=== PATIENT | female | born 1935 | race Caucasian/White ===

== ENCOUNTER 2016-11-13 12:03 | Outpatient (CLI) | payer OTHER, MEDICARE ==
[~2016-11-13] VITALS: Ht 147.3 cm; Wt 40.4 kg
[~2016-11-13 12:03] MED LIST: ACET-2650 PO; AMOX250C; AMOX250C PO; FLUT16SP22 NS; ROPI2TAB4; ROPI2TAB4 PO; RT-ALBUINH INH; TRAM50TA2 PO
[2016-11-13] MEDS ORDERED: BUPIVACAINE 0.25% 30 ML (SENSORCAINE) VIAL ONE (12:09)
[2016-11-13] MEDS ORDERED: TRIAMCINOLONE ACET (KENALOG-40) 40 MG/ML 1 ML VIAL ONE (12:09)
[2016-11-13 12:19] VITALS: BP 116/66
--- NOTE | 2016-11-13 14:56 | Pain Medicine-Procedure ---
Procedure Pre-Op/Post-Op Diagnosis Diagnosis: disc disorder with radiculopathy, lumbar Indications for Operation Low back pain Attending Surgeon Reji Procedure Date of Service: Nov 13, 2016 Procedure: Lumbar Epidural Steroid Injection at the L4-L5 level under Fluoroscopic Guidance Procedure: Patient was identified in the holding area. After risks, benefits, and alternatives were discussed with the patient, informed consent was obtained. Patient was brought to the fluoroscopy suite and placed prone on the procedure room table. A time out was performed. Vital signs were monitored throughout the procedure. The patients low back was prepped and draped in the usual sterile fashion. The patients skin was anesthetized using 2% Lidocaine. A Tuohy needle was inserted and advanced to the L4-L5 epidural space under fluoroscopic guidance using the loss of resistance technique and intermittent projection of fluoroscopy. There was no paresthesia with needle placement. The needle position was confirmed in both the AP and lateral view. After negative aspiration 2ml of contrast was injected under live fluoroscopy which showed good spread of the contrast in the epidural space at the appropriate level, there was no intravascular or subarachnoid spread. Again, after negative aspiration for heme or CSF, 2 ml of 0.25% Bupivicaine, 2ml of preservative free normal saline, and 80mg of Kenalog was injected. The needle was removed and a sterile bandage was placed and the patient was transferred to the recovery area in stable condition. After a brief period of observation, patient was discharged to home with no new neurological deficits and no apparent complications. Complications None ELLA ANNA MD Nov 13, 2016 2:56 pm
== END 2016-11-13 13:08 | disposition home or self-care (01) ==
LOC: CARD 12:03
PROVIDERS: ATTEND Pain Medicine Pain Medicine
DX: M51.16 Intervertebral disc disorders with radiculopathy, lumbar region (principal); Z79.899 Other long term (current) drug therapy
CPT/HCPCS: 62323

== ENCOUNTER → 2020-06-07 | Outpatient (CLI) | payer MEDICARE, BC ==
[~2020-06-07] MED LIST changes: +LORA10TA7 PO; -ROPI2TAB4; -ROPI2TAB4 PO; +ROPI2TAB6; +ROPI2TAB6 PO; -TRAM50TA2 PO; +TRM50T PO
== END ==
LOC: RAD 10:30
PROVIDERS: ATTEND Nurse Practitioner Family
DX: R13.12 Dysphagia, oropharyngeal phase (principal)

== ENCOUNTER → 2020-10-12 | Outpatient (CLI) | payer OTHER, MEDICARE, BC | LOC: GIR 16:20 | PROVIDERS: ATTEND Internal Medicine | DX: Z01.89 Encounter for other specified special examinations (principal) | CPT/HCPCS: 84132 ==

== ENCOUNTER 2020-12-28 17:26 | Emergency (ER) | payer MEDICARE, BC ==
[~2020-12-28] VITALS: Ht 147 cm; Wt 38.1 kg
--- NOTE | 2020-12-28 17:42 | ED General ---
General Stated Complaint: MULTIPLE FALLS Source of Information: Patient Exam Limitations: No Limitations (MATY OWENS APRN) History of Present Illness Date Seen by Provider: Dec 28, 2020 Time Seen by Provider: 17:37 Initial Comments To ER with reports of multiple falls. She is brought to ER by private vehicle accompanied by her daughter. Patient is on hosp[facility] for dementia and Parkinson's disease. Currently resides at [facility] but [facility] does not feel they are adequately meeting her needs. She is getting established with [facility] to be transferred to their services. She fell once yesterday and once today, has an abrasion of the forehead. Starting today she has had a decline in mental status much more lethargic than usual. Timing/Duration: 1-2 Days Severity: Moderate Associated Systoms: Denies Symptoms (MATY OWENS APRN) Allergies and Home Medications Allergies Coded Allergies: No Known Drug Allergies (Unverified , 08/31/15) Home Medications Acetaminophen 650 Mg Tablet.er, 650 MG PO Q4H PRN for PAIN, (Reported) Albuterol Sulfate 8.5 Gm Hfa.aer.ad, 2 PUFF INH Q6H PRN for SHORTNESS OF BREATH, (Reported) Fluticasone Propionate 16 Gm Wittman.susp, 2 SPRAYS NS DAILY PRN for Allergies, (Reported) Loratadine 10 Mg Tablet, 10 MG PO DAILY, (Reported) Patient Home Medication List Home Medication List Reviewed: Yes (MATY OWENS APRN) Review of Systems Review of Systems Constitutional: see HPI, other (Unable to obtain) (MATY OWENS APRN) Past Lcsidun-Tqqors-Wyxtdo Hx Patient Social History Type Used: Cigarettes Former Smoker, Quit: Feb 23, 2005 2nd Hand Smoke Exposure: No Recent Hopitalizations: No (MATY OWENS APRN) Immunizations Up To Date Date of Pneumonia Vaccine: Apr 25, 2015 Date of Influenza Vaccine: Apr 25, 2016 (MATY OWENS APRN) Seasonal Allergies Seasonal Allergies: No (MATY OWENS APRN) Past Medical History Surgeries: Yes (LEFT KNEE REPLACEMENT; RIGHT TIB-FIB/ANKLE FX WITH ORIF) Hysterectomy, Joint Replacement, Orthopedic Respiratory: Yes COPD Currently Using CPAP: No Currently Using BIPAP: No Cardiac: Yes (CAROTID DISEASE) Deep Vein Thrombosis, Hypotension, Peripheral Vascular Neurological: No Reproductive Disorders: No Female 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, 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 Sexually Transmitted Disease: No HIV/AIDS: No Genitourinary: No Gastrointestinal: No Musculoskeletal: Yes Osteoporosis, Rheumatoid Arthritis, Chronic Back Pain, Fractures Endocrine: No HEENT: No Cancer: No Psychosocial: No Integumentary: No Blood Disorders: No Adverse Reaction/Blood Tranf: No (MATY OWENS APRN) Family Medical History Hypertension (MATY OWENS APRN) Physical Exam Vital Signs Vital Signs - First Documented 12/28/20 12/28/20 17:29 17:30 Temp 36.8 Pulse 64 Resp 18 B/P (MAP) 154/82 (106) Pulse Ox 92 O2 Delivery Room Air O2 Flow Rate 2.00 (CHARISMA SEAY MD) Vital Signs Capillary Refill : (MATY OWENS APRN) Height, Weight, BMI Height: 4'10.00" Weight: 105lbs. 6.0oz. 47.231206gm; 19.9 BMI Method:Stated General Appearance: Chronically ill (Frail, lethargic, keeps her eyes closed. Purplish/red ecchymosis over the midline forehead that looks acute, a more brownish ecchymosis over the right side of the forehead), Thin HEENT: PERRL/EOMI, TMs Normal Neck: Full Range of Motion, Normal Inspection Respiratory: No Accessory Muscle Use, No Respiratory Distress Cardiovascular: Regular Rate, Rhythm, Normal Peripheral Pulses Gastrointestinal: Normal Bowel Sounds, Non Tender, Soft Skin: Normal Color, Warm/Dry (MATY OWENS APRN) Progress/Results/Core Measures Suspected Sepsis SIRS Temperature: Pulse: Respiratory Rate: Laboratory Tests 12/28/20 17:40: White Blood Count 7.5 Blood Pressure / Mean: Laboratory Tests 12/28/20 17:40: Creatinine 0.71, Platelet Count 350, Total Bilirubin 0.6 (MATY OWENS APRN) Results/Orders Lab Results Laboratory Tests Test 12/28/20 17:40 12/28/20 18:27 Range/Units White Blood Count 7.5 4.3-11.0 10^3/uL Red Blood Count 3.87 3.80-5.11 10^6/uL Hemoglobin 12.1 11.5-16.0 g/dL Hematocrit 36 35-52 % Mean Corpuscular Volume 94 80-99 fL Mean Corpuscular Hemoglobin 31 25-34 pg Mean Corpuscular Hemoglobin Concent 33 32-36 g/dL Red Cell Distribution Width 12.9 10.0-14.5 % Platelet Count 350 130-400 10^3/uL Mean Platelet Volume 8.7 L 9.0-12.2 fL Immature Granulocyte % (Auto) 0 % Neutrophils (%) (Auto) 77 H 42-75 % Lymphocytes (%) (Auto) 14 12-44 % Monocytes (%) (Auto) 6 0-12 % Eosinophils (%) (Auto) 2 0-10 % Basophils (%) (Auto) 1 0-10 % Neutrophils # (Auto) 5.7 1.8-7.8 10^3/uL Lymphocytes # (Auto) 1.1 1.0-4.0 10^3/uL Monocytes # (Auto) 0.5 0.0-1.0 10^3/uL Eosinophils # (Auto) 0.1 0.0-0.3 10^3/uL Basophils # (Auto) 0.0 0.0-0.1 10^3/uL Immature Granulocyte # (Auto) 0.0 0.0-0.1 10^3/uL Sodium Level 142 135-145 MMOL/L Potassium Level 3.4 L 3.6-5.0 MMOL/L Chloride Level 103 98-107 MMOL/L Carbon Dioxide Level 24 21-32 MMOL/L Anion Gap 15 H 5-14 MMOL/L Blood Urea Nitrogen 9 7-18 MG/DL Creatinine 0.71 0.60-1.30 MG/DL Estimat Glomerular Filtration Rate > 60 BUN/Creatinine Ratio 13 Glucose Level 132 H 70-105 MG/DL Calcium Level 9.2 8.5-10.1 MG/DL Corrected Calcium 9.4 8.5-10.1 MG/DL Total Bilirubin 0.6 0.1-1.0 MG/DL Aspartate Amino Transf (AST/SGOT) 21 5-34 U/L Alanine Aminotransferase (ALT/SGPT) 6 0-55 U/L Alkaline Phosphatase 131 40-136 U/L Total Protein 6.9 6.4-8.2 GM/DL Albumin 3.7 3.2-4.5 GM/DL Urine Color YELLOW Urine Clarity CLEAR Urine pH 5.5 5-9 Urine Specific [place] 1.025 H 1.016-1.022 Urine Protein NEGATIVE NEGATIVE Urine Glucose (UA) NEGATIVE NEGATIVE Urine Ketones 1+ H NEGATIVE Urine Nitrite NEGATIVE NEGATIVE Urine Bilirubin NEGATIVE NEGATIVE Urine Urobilinogen 0.2 < = 1.0 MG/DL Urine Leukocyte Esterase NEGATIVE NEGATIVE Urine RBC (Auto) TRACE-I NEGATIVE Urine RBC 0-2 /HPF Urine WBC 2-5 /HPF Urine Squamous Epithelial Cells 0-2 /HPF Urine Renal Epithelial Cells 0-2 /HPF Urine Crystals PRESENT H /LPF Urine Calcium Oxalate Crystals FEW H /LPF Urine Bacteria TRACE /HPF Urine Casts PRESENT /LPF Urine Hyaline Casts 0-2 H /LPF Urine Mucus NEGATIVE /LPF Urine Culture Indicated YES (CHARISMA SEAY MD) Micro Results Microbiology 12/28/20 Urine Culture - Final, Complete NO GROWTH (CHARISMA SEAY MD) Vital Signs/I&O 12/28/20 12/28/20 12/28/20 12/28/20 17:29 17:30 18:17 19:10 Temp 36.8 Pulse 64 55 60 Resp 18 18 16 B/P (MAP) 154/82 (106) 145/68 (93) 141/90 Pulse Ox 92 90 100 96 O2 Delivery Room Air Nasal Cannula Nasal Cannula O2 Flow Rate 2.00 2.00 (CHARISMA SEAY MD) Vital Signs/I&O Capillary Refill : (MATY OWENS APRN) Progress Note : Progress Note I was physically present in the emergency department as attending physician during the care of this patient, but I was not directly involved in this patient's care. (CHARISMA SEAY MD) Departure Communication (Admissions) Family Conversation NAME: [facility] REC#: [id number] PT STATUS: REG ER : 1935 PHYSICIAN: MATY OWENS APRN ADMIT DATE: 12/28/20/ER Draft Date of Exam:12/28/20 CT HEAD/CERVICAL SPINE WO EXAMINATION: CT head and CT cervical spine without contrast. TECHNIQUE: Multiple contiguous axial images were obtained through the brain and cervical spine without the use of intravenous contrast. Sagittal and coronal reformations through the cervical spine were then performed. All CT scans use one or more of the following dose optimizing techniques: automated exposure control, MA and/or KvP adjustment based on patient size and exam type or iterative reconstruction. HISTORY: Pain, fall. COMPARISON: 10/29/2017. FINDINGS: There is an age indeterminant area of todd-white matter differentiation loss in the left temporal lobe. No mass effect or midline shift. There is age related cerebral atrophy with ex vacuo dilation of the ventricles. Basilar cisterns are patent. There are no intra-axial or extra-axial fluid collections. There is no intracranial hemorrhage. The orbits are normal. Paranasal sinuses are normal. Mastoid air cells are clear. No soft tissue abnormality is seen. No osseus lesions or fractures are seen. The alignment of the cervical spine is normal. No fracture is seen. Vertebral body heights are normal. The craniocervical junction is normal. There is mild to moderate degenerative disease in the cervical spine. There is degenerative fusion of the right C3-C4 facets and left C3-C4 facets. There is disc height loss at C4-C5, C5-C6 and C6-C7. There is no spinal canal stenosis. There are carotid bifurcation calcifications, bilaterally. Limited views of the superior thorax are normal. IMPRESSION: 1. 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 2. No cervical spine fracture. Dictated on workstation # [id number] Dict: 12/28/201820 Trans: 12/28/201826 [facility] [id number] Interpreted by: JENNI GONGORA MD Electronically signed by: [id number] have spoken with Catracho from [facility]. The patient's daughter is at the bedside and would like the patient admitted to [facility] [place] for her Parkinson's disease with dementia and to continue hospice with [facility]. The patients daughter feels she does not have a physical capacity to go back to assisted living and I certainly agree with this. As such we will help facilitate this transfer from [facility] assisted living to [facility] with Catracho. Per Catracho's (RN Director at [facility]) request I have written for emergency admit orders to [facility]. Suspect a concussion is likely the cause of her lethargy given the unremarkable labs and the CT without evidence of intracranial hemorrhage. (MATY OWENS APRN) Impression Primary Impression: Debility Additional Impressions: Generalized weakness Head injury Disposition: HOME, SELF-CARE Condition: Stable Departure-Patient Inst. Decision time for Depature: 19:02 (MATY OWENS APRN) Referrals: [facility] (PCP) Primary Care Physician JUSTO RODRIGUEZ APRN (Family) Primary Care Physician Patient Instructions: Concussion, Adult ED Copy Copies To 1: TORI SALCEDO PETER J APRN Dec 28, 2020 17:42 CHARISMA SEAY MD Dec 30, 2020 09:49
[2020-12-28 17:54] LABS: BASOPHILS % (AUTO) 1 % (0-10); EOSINOPHILS # (AUTO) 0.1 10^3/uL (0.0-0.3); EOSINOPHILS % (AUTO) 2 % (0-10); HEMATOCRIT 36 % (35-52); HEMOGLOBIN 12.1 g/dL (11.5-16.0); LYMPHOCYTES # (AUTO) 1.1 10^3/uL (1.0-4.0); LYMPHOCYTES % (AUTO) 14 % (12-44); MEAN CORPUSCULAR HEMOGLOBIN 31 pg (25-34); MEAN CORPUSCULAR HGB CONC 33 g/dL (32-36); MEAN CORPUSCULAR VOLUME 94 fL (80-99); MEAN PLATELET VOLUME 8.7 fL (9.0-12.2); MONOCYTES # (AUTO) 0.5 10^3/uL (0.0-1.0); MONOCYTES % (AUTO) 6 % (0-12); NEUTROPHILS # (AUTO) 5.7 10^3/uL (1.8-7.8); NEUTROPHILS % (AUTO) 77 % (42-75); PLATELET COUNT 350 10^3/uL (130-400); WHITE BLOOD COUNT 7.5 10^3/uL (4.3-11.0)
[2020-12-28 18:04] LABS: ALBUMIN 3.7 GM/DL (3.2-4.5); CHLORIDE 103 MMOL/L (98-107); POTASSIUM 3.4 MMOL/L (3.6-5.0); SODIUM 142 MMOL/L (135-145)
[2020-12-28 18:06] LABS: CALCIUM 9.2 MG/DL (8.5-10.1)
[2020-12-28 18:07] LABS: GLUCOSE 132 MG/DL (70-105); TOTAL PROTEIN 6.9 GM/DL (6.4-8.2)
[2020-12-28 18:08] LABS: CARBON DIOXIDE 24 MMOL/L (21-32)
[2020-12-28 18:09] LABS: BILIRUBIN,TOTAL 0.6 MG/DL (0.1-1.0)
[2020-12-28 18:10] LABS: ALKALINE PHOSPHATASE 131 U/L (40-136); CREATININE SERUM 0.71 MG/DL (0.60-1.30); GFR ESTIMATED > 60
[2020-12-28 18:11] LABS: BUN/CREATININE RATIO 13
[2020-12-28 18:13] LABS: ALANINE AMINOTRANSFERASE 6 U/L (0-55)
--- NOTE | 2020-12-28 18:29 | Diagnostic Imaging Report ---
EXAMINATION: CT head and CT cervical spine without contrast. TECHNIQUE: Multiple contiguous axial images were obtained through the brain and cervical spine without the use of intravenous contrast. Sagittal and coronal reformations through the cervical spine were then performed. All CT scans use one or more of the following dose optimizing techniques: automated exposure control, MA and/or KvP adjustment based on patient size and exam type or iterative reconstruction. HISTORY: Pain, fall. COMPARISON: 10/29/2017. FINDINGS: There is an age indeterminant area of todd-white matter differentiation loss in the left temporal lobe. No mass effect or midline shift. There is age related cerebral atrophy with ex vacuo dilation of the ventricles. Basilar cisterns are patent. There are no intra-axial or extra-axial fluid collections. There is no intracranial hemorrhage. The orbits are normal. Paranasal sinuses are normal. Mastoid air cells are clear. No soft tissue abnormality is seen. No osseus lesions or fractures are seen. The alignment of the cervical spine is normal. No fracture is seen. Vertebral body heights are normal. The craniocervical junction is normal. There is mild to moderate degenerative disease in the cervical spine. There is degenerative fusion of the right C3-C4 facets and left C3-C4 facets. There is disc height loss at C4-C5, C5-C6 and C6-C7. There is no spinal canal stenosis. There are carotid bifurcation calcifications, bilaterally. Limited views of the superior thorax are normal. IMPRESSION: 1. 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 2. No cervical spine fracture. Dictated by: Dictated on workstation # [id number]
[2020-12-28 18:36] LABS: BILIRUBIN,URINE NEGATIVE (NEGATIVE); CLARITY,URINE CLEAR; COLOR,URINE YELLOW; GLUCOSE, URINE (UA) NEGATIVE (NEGATIVE); KETONES,URINE 1+ (NEGATIVE); LEUKOCYTE ESTERASE ,URINE NEGATIVE (NEGATIVE); NITRITE,URINE NEGATIVE (NEGATIVE); PH,URINE 5.5 (5-9); PROTEIN,URINE NEGATIVE (NEGATIVE)
[2020-12-28 18:55] LABS: BACTERIA,URINE TRACE /HPF; RBC,URINE 0-2 /HPF
[2020-12-28 18:56] LABS: CALCIUM OXALATE CRYSTALS,UR FEW /LPF; HYALINE CASTS, URINE 0-2 /LPF; RENAL EPITHELIAL CELLS,URINE 0-2 /HPF; SQUAMOUS EPITHELIAL CELL,UR 0-2 /HPF
[2020-12-28 19:10] VITALS: BP 141/90
== END 2020-12-28 19:15 | disposition home or self-care (01) ==
LOC: EDUNIT# 17:26 → ER 17:28
DX: S09.90XA Unspecified injury of head, initial encounter (principal); S00.83XA Contusion of other part of head, initial encounter; R53.1 Weakness; R53.81 Other malaise; R29.6 Repeated falls; G20 Parkinson's disease; F02.80 Dementia in other diseases classified elsewhere, unspecified severity, without behavioral disturbance, psychotic disturbance, mood disturbance, and anxiety; J44.9 Chronic obstructive pulmonary disease, unspecified; G89.29 Other chronic pain; M54.9 Dorsalgia, unspecified; Z87.891 Personal history of nicotine dependence; Z79.51 Long term (current) use of inhaled steroids; Z79.899 Other long term (current) drug therapy; W19.XXXA Unspecified fall, initial encounter
CPT/HCPCS: 36415; 51701; 70450; 72125; 80053; 81000; 85025; 87088

== ENCOUNTER 2021-01-07 17:31 | Emergency (ER) | payer MEDICARE, BC ==
[~2021-01-07] VITALS: Ht 152 cm; Wt 45.0 kg
--- NOTE | 2021-01-07 17:51 | ED Fall/Injury ---
General Chief Complaint: Trauma-Non Activation Stated Complaint: UNWITNESSED FALL / HIP PAIN Nursing Triage Note: ARRIVED VIA EMS TO ROOM 08 FROM [facility]. 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 PT HAD A STAFF UNWITTNESSED FALL. ACCORDING TO [facility] RESIDENTS PT WAS REACHING FOR SOMETHING FROM HER WC AND FELL OUT. PT COMPLAINS OF PAIN ALL OVER. DENIES NECK PAIN. STATES THERE WAS NO LOC. OLD FADING BRUISING NOTICED RIGHT SIDE OF FACE. Source: patient, EMS Exam Limitations: no limitations History of Present Illness Date Seen by Provider: Jan 07, 2021 Time Seen by Provider: 17:49 Occurred: just prior to arrival Severity: mild Injuries/Pain Location: no injury Context: slipped Loss of Consciousness: no loss of consciousness Associated Symptoms (Fall): Denies Symptoms Allergies and Home Medications Allergies Coded Allergies: No Known Drug Allergies (Unverified , 08/31/15) Home Medications Acetaminophen 650 Mg Tablet.er, 650 MG PO Q4H PRN for PAIN, (Reported) Albuterol Sulfate 8.5 Gm Hfa.aer.ad, 2 PUFF INH Q6H PRN for SHORTNESS OF BREATH, (Reported) Fluticasone Propionate 16 Gm Bagley.susp, 2 SPRAYS NS DAILY PRN for Allergies, (Reported) Loratadine 10 Mg Tablet, 10 MG PO DAILY, (Reported) Patient Home Medication List Home Medication List Reviewed: Yes Review of Systems Review of Systems Constitutional: see HPI, other (Unable to obtain due to lethargy) Past Mjcngvo-Incibf-Fytdmw Hx Patient Social History Alcohol Use: Denies Use Smoking Status: Former Smoker Type Used: Cigarettes Former Smoker, Quit: Feb 23, 2005 2nd Hand Smoke Exposure: No Recent Infectious Disease Expo: No Recent Hopitalizations: No Immunizations Up To Date Date of Pneumonia Vaccine: Apr 25, 2015 Date of Influenza Vaccine: Apr 25, 2016 Seasonal Allergies Seasonal Allergies: No Past Medical History Surgeries: Yes (LEFT KNEE REPLACEMENT; RIGHT TIB-FIB/ANKLE FX WITH ORIF) Hysterectomy, Joint Replacement, Orthopedic Respiratory: Yes COPD Currently Using CPAP: No Currently Using BIPAP: No Cardiac: Yes (CAROTID DISEASE) Deep Vein Thrombosis, Hypotension, Peripheral Vascular Neurological: No Reproductive Disorders: No 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 6.0oz. 47.166368qn; 19.00 BMI Method:Stated General Appearance: WD/WN, no apparent distress, thin HEENT: PERRL/EOMI, TMs normal, other (old yellowish bruising to face) Neck: non-tender, full range of motion; No tender lateral, No tender midline Cardiovascular: regular rate, rhythm, no murmur Respiratory: no respiratory distress, no accessory muscle use Gastrointestinal: normal bowel sounds, non tender, soft Extremities: normal range of motion, non-tender, other (hips/knees bilat have normal ROM witout pain or grimacing) Neurologic/Psychiatric: alert, normal mood/affect Skin: normal color, warm/dry Rula Coma Score Best Eye Response: (4) Open Spontaneously Best Verbal Response: (4) Confused Conversation Best Motor Response: (6) Obeys Commands Rula Total: 14 Progress/Results/Core Measures Results/Orders My Orders Orders - MATY OWENS APRN Ct Head/Cervical Spine Wo (01/07/21 17:51) Vital Signs/I&O 01/07/21 17:31 Temp 36.2 Pulse 55 Resp 16 B/P (MAP) 151/76 (101) Pulse Ox 96 O2 Delivery Room Air Blood Pressure Mean: 101 Departure Impression Primary Impression: Fall Disposition: 01 HOME, SELF-CARE Condition: Stable Departure-Patient Inst. Decision time for Depature: 19:37 Referrals: [facility] (PCP) Primary Care Physician JUSTO RODRIGUEZ APRN (Family) Primary Care Physician Patient Instructions: Preventing Falls MATY OWENS APRN Jan 07, 2021 17:51
--- NOTE | 2021-01-07 18:34 | Diagnostic Imaging Report ---
PROCEDURE: CT head and CT cervical spine without contrast. TECHNIQUE: Multiple contiguous axial images were obtained through the brain and cervical spine without the use of intravenous contrast. Sagittal and coronal reformations through the cervical spine were then performed. Auto Exposure Controls were utilized during the CT exam to meet ALARA standards for radiation dose reduction. INDICATION: Fall. Correlation is made with prior exam from 12/28/2020. CT HEAD: Area of low-density in the left temporal lobe described previously is again noted. Overall ventricular size and sulcal pattern appear stable. No sulcal effacement is identified. There is no midline shift. No acute intra-axial or extra-axial hemorrhage is detected. There is periventricular hypodensity noted consistent with senescent change. Cisterns are patent. Visualized paranasal sinuses are clear. IMPRESSION: Chronic and senescent changes, stable since 12/28/2020. No acute intracranial process is detected. CT CERVICAL SPINE: Curvature and alignment of the cervical spine is normal. There is multilevel degenerative disc and facet disease. There is variable disc space narrowing and marginal spurring. No fractures are seen. The prevertebral tissues are within normal limits. Odontoid is intact. IMPRESSION: Cervical spondylosis. No acute bony abnormality is detected. Dictated by: Dictated on workstation # [id number]
[2021-01-07 19:55] VITALS: BP 145/75
== END 2021-01-07 19:55 | disposition home or self-care (01) ==
LOC: EDUNIT# 17:31 → ER 17:34
DX: Z04.1 Encounter for examination and observation following transport accident (principal); J44.9 Chronic obstructive pulmonary disease, unspecified; Z87.891 Personal history of nicotine dependence
CPT/HCPCS: 70450; 72125

== ENCOUNTER 2021-02-17 06:34 | Emergency (ER) | payer MEDICARE, BC ==
[~2021-02-17] VITALS: Ht 162 cm; Wt 45.0 kg
--- NOTE | 2021-02-17 07:09 | ED Fall/Injury ---
General Chief Complaint: Trauma-Non Activation Stated Complaint: FALL Nursing Triage Note: PT ARRIVES TO ED ROOM 3 VIA EMS AFTER SUFFERING AN UNWITNESSED FALL AT RESIDENCE. PT HAS A SMALL LUMP OVER THE L EYEBROW. HOSPICE NURSING STAFF ADVISE ED THAT THE PT IS ON BLOOD THINNERS. PT DENIES LOC AND NV. Source: patient Exam Limitations: no limitations History of Present Illness Date Seen by Provider: Feb 17, 2021 Time Seen by Provider: 06:32 Initial Comments Here by EMS for report of falling out of bed. Apparently hit the floor and bumped her head. She is on blood thinners. The care home that she lives at Center here for evaluation due to concerns for head injury and patient is on blood thinners. Patient denies significant pain anywhere at this point. Her only complaint is being cold. She is amiable to exam. Denies nausea and vomiting. There is no report of any bleeding wounds. Occurred: this morning Severity: mild Injuries/Pain Location: head Context: other (Fell out of bed) Loss of Consciousness: no loss of consciousness Modifying Factors: Improves With Rest Associated Symptoms (Fall): No Headache, No Nausea/Vomiting, No Neck Pain, No Shortness of Air, No Vision Changes Allergies and Home Medications Allergies Coded Allergies: No Known Drug Allergies (Unverified , 08/31/15) Home Medications Acetaminophen 650 Mg Tablet.er, 650 MG PO Q4H PRN for PAIN, (Reported) Albuterol Sulfate 8.5 Gm Hfa.aer.ad, 2 PUFF INH Q6H PRN for SHORTNESS OF BREATH, (Reported) Fluticasone Propionate 16 Gm [place].susp, 2 SPRAYS NS DAILY PRN for Allergies, (Reported) Loratadine 10 Mg Tablet, 10 MG PO DAILY, (Reported) Patient Home Medication List Home Medication List Reviewed: Yes Review of Systems Review of Systems Constitutional: see HPI; No chills, No fever Ears, Nose, Mouth, Throat: no symptoms reported Respiratory: no symptoms reported Cardiovascular: no symptoms reported All Other Systems Reviewed Negative Unless Noted: Yes Past Jgxjyxq-Lopzul-Drvexl Hx Patient Social History Tobacco Use?: No Use of E-Cig and/or Vaping dev: No Substance use?: No Alcohol Use?: No Seasonal Allergies Seasonal Allergies: No Past Medical History Surgeries: Yes (LEFT KNEE REPLACEMENT; RIGHT TIB-FIB/ANKLE FX WITH ORIF) Hysterectomy, Joint Replacement, Orthopedic Respiratory: Yes COPD Currently Using CPAP: No Currently Using BIPAP: No Cardiac: Yes (CAROTID DISEASE) Deep Vein Thrombosis, Hypotension, Peripheral Vascular Neurological: No Reproductive Disorders: No Female Reproductive Disorders: Denies [employer] History: Hysterectomy, Menopausal Sexually Transmitted Disease: No HIV/AIDS: No Genitourinary: No Gastrointestinal: No Musculoskeletal: Yes Osteoporosis, Rheumatoid Arthritis, Chronic Back Pain, Fractures Endocrine: No HEENT: No Cancer: No Psychosocial: No Integumentary: No Blood Disorders: No Adverse Reaction/Blood Tranf: No Family Medical History Reviewed Nursing Family Hx Hypertension Physical Exam Vital Signs Vital Signs - First Documented 02/17/21 06:35 Temp 36.0 Pulse 54 Resp 16 B/P (MAP) 156/69 (98) Pulse Ox 100 O2 Delivery Room Air Capillary Refill : Less Than 3 Seconds Height, Weight, BMI Height: 4'10.00" Weight: 105lbs. 6.0oz. 47.824468dv; 17.00 BMI Method:Stated General Appearance: WD/WN, no apparent distress HEENT: PERRL/EOMI, pharynx normal Neck: non-tender, supple, other (Kyphotic stiffness to neck) Cardiovascular: regular rate, rhythm, no murmur Respiratory: lungs clear, normal breath sounds Gastrointestinal: non tender, soft Extremities: no pedal edema, no calf tenderness, pelvis stable Neurologic/Psychiatric: alert, normal mood/affect Skin: normal color, warm/dry, other (No significant abrasions, contusions or deformity to the head) [place] Coma Score Best Eye Response: (4) Open Spontaneously Best Verbal Response: (5) Oriented Best Motor Response: (6) Obeys Commands Progress/Results/Core Measures Results/Orders My Orders Orders - BRICE MARTINEZ MD Ct Head/Cervical Spine Wo (02/17/21 06:53) Vital Signs/I&O 02/17/21 06:35 Temp 36.0 Pulse 54 Resp 16 B/P (MAP) 156/69 (98) Pulse Ox 100 O2 Delivery Room Air Blood Pressure Mean: 98 Progress Progress Note : Progress Note Seen and evaluated. We will go ahead and get CT of the head due to being on blood thinners and neck due to stiffness and kyphosis noted. Monitor patient. 0820: CTs show no acute findings other than soft tissue swelling in the area of concern. I did discuss findings with the facility director. Patient to go back to facility with general return precautions. Facility director verbalized understanding instructions and agreement with plan. Diagnostic Imaging Diagonstic Imaging: CT Plain Films/CT/US/NM/MRI: c-spine, head Comments [facility] [place], [place] NAME: STANLEY HUFF [facility] REC#: [id number] PT STATUS: REG ER : 1935 PHYSICIAN: BRICE MARTINEZ MD ADMIT DATE: 02/17/21/ER Draft Date of Exam:02/17/21 CT HEAD/CERVICAL SPINE WO Clinical indication: Patient is status post fall with head and neck pain. Exam: Head CT without IV contrast with sagittal and coronal reformations. Axial CT scan of the cervical spine with sagittal and coronal reformations. Auto Exposure Controls were utilized during the CT exam to meet ALARA standards for radiation dose reduction. Comparison: CT scan of the head and cervical spine without contrast dated 01/07/2021. Findings: Head CT: There is no interval acute intracranial process. There is no intracranial hemorrhage, brain herniation or midline shift. There is no hydrocephalus. Stable small area of encephalomalacia involving the lateral aspect of left temporal lobe. Stable small patchy and amorphous areas of low-attenuation white matter changes involving both cerebral hemispheres, suspect to represent chronic small vessel ischemic disease. There is brain parenchymal volume loss. Basal cisterns are unremarkable. There is a small area of extracranial soft tissue swelling involving the left lateral aspect of the head. There is no skull fracture. Paranasal sinuses and mastoid air cells are clear. Orbits and globes are intact. Cervical spine: There is no interval acute cervical spine fracture. Stable slight irregularity involving the odontoid process which was also noted on the prior study. There is no definite fracture seen. Again noted is cervical spine vertebral body spurs and facet arthropathy. There is no significant interval neck soft tissue abnormality. Emphysematous lung disease is seen. Impression: 1: Stable CT scan of the brain with no evidence of acute intracranial process. 2: There is interval development of a small area of extracranial soft tissue swelling involving left side of the head. There is no skull fracture. 3: Stable cervical spine degenerative disease with no acute fracture or dislocation. Dictated on workstation # [id number] Dict: 02/17/21 0740 Trans: 02/17/21 0801 [id number] Interpreted by: MICHAEL BALTAZAR MD Electronically signed by: Departure Impression Primary Impression: Minor head injury Qualified Codes: S09.90XA - Unspecified injury of head, initial encounter Additional Impression: Scalp contusion Qualified Codes: S00.03XA - Contusion of scalp, initial encounter Disposition: 01 HOME, SELF-CARE Condition: Stable Departure-Patient Inst. Decision time for Depature: 08:24 Referrals: JENNI DURHAM MD (PCP) Primary Care Physician JUSTO RODRIGUEZ APRN (Family) Primary Care Physician Patient Instructions: Closed Head Injury (DC), Minor Contusion ED Add. Discharge Instructions: All discharge instructions reviewed with patient and/or family. Voiced understanding. Continue home meds as previously prescribed. Follow-up with your doctor as needed. Return for worse pain, vomiting, weakness or other concerns as needed. BRICE MARTINEZ MD Feb 17, 2021 07:09
--- NOTE | 2021-02-17 08:02 | Diagnostic Imaging Report ---
Clinical indication: Patient is status post fall with head and neck pain. Exam: Head CT without IV contrast with sagittal and coronal reformations. Axial CT scan of the cervical spine with sagittal and coronal reformations. Auto Exposure Controls were utilized during the CT exam to meet ALARA standards for radiation dose reduction. Comparison: CT scan of the head and cervical spine without contrast dated 01/07/2021. Findings: Head CT: There is no interval acute intracranial process. There is no intracranial hemorrhage, brain herniation or midline shift. There is no hydrocephalus. Stable small area of encephalomalacia involving the lateral aspect of left temporal lobe. Stable small patchy and amorphous areas of low-attenuation white matter changes involving both cerebral hemispheres, suspect to represent chronic small vessel ischemic disease. There is brain parenchymal volume loss. Basal cisterns are unremarkable. There is a small area of extracranial soft tissue swelling involving the left lateral aspect of the head. There is no skull fracture. Paranasal sinuses and mastoid air cells are clear. Orbits and globes are intact. Cervical spine: There is no interval acute cervical spine fracture. Stable slight irregularity involving the odontoid process which was also noted on the prior study. There is no definite fracture seen. Again noted is cervical spine vertebral body spurs and facet arthropathy. There is no significant interval neck soft tissue abnormality. Emphysematous lung disease is seen. Impression: 1: Stable CT scan of the brain with no evidence of acute intracranial process. 2: There is interval development of a small area of extracranial soft tissue swelling involving left side of the head. There is no skull fracture. 3: Stable cervical spine degenerative disease with no acute fracture or dislocation. Dictated by: Dictated on workstation # [id number]
[2021-02-17 08:28] VITALS: BP 148/81
== END 2021-02-17 08:28 | disposition home or self-care (01) ==
LOC: EDUNIT# 06:34 → ER 06:35
DX: S09.90XA Unspecified injury of head, initial encounter (principal); S00.03XA Contusion of scalp, initial encounter; J44.9 Chronic obstructive pulmonary disease, unspecified; Z86.718 Personal history of other venous thrombosis and embolism; Z79.01 Long term (current) use of anticoagulants; Z79.51 Long term (current) use of inhaled steroids; W06.XXXA Fall from bed, initial encounter; Y92.009 Unspecified place in unspecified non-institutional (private) residence as the place of occurrence of the external cause
CPT/HCPCS: 70450; 72125

== ENCOUNTER 2021-05-10 18:25 | Emergency (ER) | payer MEDICARE, BC ==
[~2021-05-10] VITALS: Ht 145 cm; Wt 34.5 kg
--- NOTE | 2021-05-10 18:35 | ED Fall/Injury ---
General Stated Complaint: FALL Source: patient Exam Limitations: no limitations History of Present Illness Date Seen by Provider: May 10, 2021 Time Seen by Provider: 18:34 Initial Comments [facility] EMS [facility] as an advanced Alzheimer's patient with reports of fall off of the toilet and striking her head. No loss of consciousness. Occurred: just prior to arrival Severity: moderate Injuries/Pain Location: head Context: unknown Associated Symptoms (Fall): Denies Symptoms Allergies and Home Medications Allergies Coded Allergies: No Known Drug Allergies (Unverified , 08/31/15) Patient Home Medication List Home Medication List Reviewed: Yes Acetaminophen (Tylenol Arthritis) 650 Mg Tablet.er, 650 MG PO Q4H PRN for PAIN, (Reported) Entered as Reported by: MARY WELCH on 06/30/16 1655 Albuterol Sulfate (Proair Hfa) 8.5 Gm Hfa.aer.ad, 2 PUFF INH Q6H PRN for SHORTNESS OF BREATH, (Reported) Entered as Reported by: CRISTO ELIAS on 06/25/16 0946 Fluticasone Propionate (Fluticasone Propionate) 16 Gm [employer].susp, 2 SPRAYS NS DAILY PRN for Allergies, (Reported) Entered as Reported by: CRISTO ELIAS on 06/25/16 0946 Loratadine (Loratadine) 10 Mg Tablet, 10 MG PO DAILY, (Reported) Entered as Reported by: BIJU SIMENTAL on 10/30/17 1527 Review of Systems Review of Systems Constitutional: see HPI Eyes: No Symptoms Reported Ears, Nose, Mouth, Throat: no symptoms reported Respiratory: no symptoms reported Cardiovascular: no symptoms reported Genitourinary: no symptoms reported Musculoskeletal: no symptoms reported Skin: no symptoms reported Psychiatric/Neurological: No Symptoms Reported Past Justhni-Ewxvgt-Arleny Hx Seasonal Allergies Seasonal Allergies: No Past Medical History Surgeries: Yes (LEFT KNEE REPLACEMENT; RIGHT TIB-FIB/ANKLE FX WITH ORIF) Hysterectomy, Joint Replacement, Orthopedic Respiratory: Yes COPD Currently Using CPAP: No Currently Using BIPAP: No Cardiac: Yes (CAROTID DISEASE) Deep Vein Thrombosis, Hypotension, Peripheral Vascular Neurological: No Reproductive Disorders: No Female 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 6.0oz. 47.849119fj; 17.00 BMI Method:Stated General Appearance: WD/WN, no apparent distress, thin, other (Patient herself voices no complaints) HEENT: PERRL/EOMI, normal ENT inspection, other (There is no scalp hematoma laceration or evidence of injury) Neck: non-tender, full range of motion Respiratory: no respiratory distress, no accessory muscle use Gastrointestinal: normal bowel sounds, non tender, soft Neurologic/Psychiatric: alert, other (Arousable to verbal stimuli but disoriented x3) Skin: normal color, warm/dry [place] Coma Score Best Eye Response: (3) Open to Voice Best Verbal Response: (4) Confused Conversation Best Motor Response: (6) Obeys Commands Rula Total: 13 Progress/Results/Core Measures Results/Orders My Orders Orders - MATY OWENS APRN Ct Head/Cervical Spine Wo (05/10/21 18:32) Chest 1 View, Ap/Pa Only (05/10/21 18:32) Pelvis (05/10/21 18:32) Vital Signs/I&O 05/10/21 05/10/21 18:28 18:29 Temp 36.1 36.1 Pulse 67 67 Resp 18 18 B/P (MAP) 136/59 (84) 136/59 (84) Pulse Ox 95 95 O2 Delivery Room Air Room Air Departure Communication (Admissions) 193-CT head cervical spine chest x-ray and pelvis x-ray shows no evidence of acute injury. Impression Primary Impression: Fall at halfway Disposition: 01 HOME, SELF-CARE Condition: Stable Departure-Patient Inst. Decision time for Depature: 19:35 Referrals: JENNI DURHAM MD (PCP) Primary Care Physician JUSTO RODRIGUEZ APRN (Family) Primary Care Physician Patient Instructions: Preventing Falls in the Older Adult MATY OWENS APRN May 10, 2021 18:35
--- NOTE | 2021-05-10 19:31 | Diagnostic Imaging Report ---
INDICATION: Fall from toilet. Altered mental status. COMPARISON: 10/31/2017. FINDINGS: Single frontal radiographic view of the chest was obtained and shows normal cardiac silhouette and pulmonary vasculature. Lungs are clear. There is no focal consolidation, large effusion or pneumothorax. Osseous structures show no gross acute abnormality. IMPRESSION: No acute cardiopulmonary process. Dictated by: Dictated on workstation # [id number]
--- NOTE | 2021-05-10 19:31 | Diagnostic Imaging Report ---
INDICATION: Fall from toilet. Altered mental status. COMPARISON: None. FINDINGS: A single AP view of the pelvis was performed. There is no radiographic evidence of acute fracture or dislocation. Pubic symphysis is within normal limits. SI joints are symmetric. Proximal femurs are intact, bilaterally. The femoro-acetabular joint spaces appear maintained on this single frontal view. Remainder of the bony pelvis is intact as well. No unexpected radiopaque foreign bodies are seen. Included small bowel loops are nondistended. IMPRESSION: No radiographic evidence of acute fracture or dislocation of the bony pelvis. Dictated by: Dictated on workstation # [id number]
--- NOTE | 2021-05-10 19:31 | Diagnostic Imaging Report ---
PROCEDURE: CT head and CT cervical spine without contrast. TECHNIQUE: Multiple contiguous axial images were obtained through the brain and cervical spine without the use of intravenous contrast. Sagittal and coronal reformations through the cervical spine were then performed. Auto Exposure Controls were utilized during the CT exam to meet ALARA standards for radiation dose reduction. INDICATION: Fall from toilet with trauma to the head. Altered mental status. COMPARISON: 02/17/2021. 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 There are also scattered and confluent areas of decreased attenuation within the periventricular and subcortical deep white matter consistent with chronic small vessel ischemic changes. There is no new loss of todd-white matter junction differentiation to suggest an acute territorial infarct. There is no new mass effect or midline shift. Ventricles and cortical sulci remain diffusely prominent consistent with underlying age-related volume loss. No intra-axial or extra-axial intracranial hemorrhage is seen. No other extra-axial masses or fluid collection is identified. Bony calvarium is intact. Paranasal sinuses and mastoid air cells are clear. CT CERVICAL SPINE: Static alignment of the cervical spine is maintained. There is no significant anterolistheses or retrolisthesis. There is no evidence of jumped facets. Vertebral body heights are maintained. There is no acute fracture. No bony fragments are seen within the spinal canal. There are moderate multilevel degenerative changes consistent with intervertebral disc height loss as well as multilevel anterior and posterior disc osteophyte complex formations, as well as multilevel facet arthropathy. Prevertebral and paravertebral soft tissue structures are unremarkable. Note is made of calcified carotid atherosclerosis. Included portions of the lung apices are clear. IMPRESSION: 1. No new acute intracranial abnormality. No CT evidence for acute infarct, mass or hemorrhage. 2. 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 3. No acute fracture or dislocation in the cervical spine. Dictated by: Dictated on workstation # [id number]
[2021-05-10 19:43] VITALS: BP 119/68
== END 2021-05-10 19:45 | disposition home or self-care (01) ==
LOC: EDUNIT# 18:25 → ER 18:28
DX: S09.90XA Unspecified injury of head, initial encounter (principal); J44.9 Chronic obstructive pulmonary disease, unspecified; I10 Essential (primary) hypertension; G30.9 Alzheimer's disease, unspecified; F02.80 Dementia in other diseases classified elsewhere, unspecified severity, without behavioral disturbance, psychotic disturbance, mood disturbance, and anxiety; Y92.129 Unspecified place in nursing home as the place of occurrence of the external cause; W22.8XXA Striking against or struck by other objects, initial encounter
CPT/HCPCS: 70450; 71045; 72125; 72170

== ENCOUNTER 2022-06-17 10:05 | Inpatient (IN) | payer MEDICARE, BC ==
[~2022-06-17] VITALS: Ht 137 cm; Wt 35.4 kg
[~2022-06-17 10:05] MED LIST changes: +ALBU8.5H6 INH; -RT-ALBUINH INH
--- NOTE | 2022-06-17 10:52 | ED General ---
General Chief Complaint: Altered Mental Status Stated Complaint: ALTERED MENTAL STATUS Nursing Triage Note: PT PRESENTS TO ED VIA EMS [facility] WITH COMPLAINTS OF INCREASED LETHARGY, DECREASED APPETITE X 2 DAYS. STAFF ALSO REPORTS INCREASED WORK OF BREATHING AND HYPOXIA TODAY WITH SAT IN UPPER 80S ON RA. STAFF ALSO REPORTS DECREASED LOC RECENTLY. Source of Information: Patient, EMS Exam Limitations: Physical Impairments History of Present Illness Date Seen by Provider: Jun 17, 2022 Time Seen by Provider: 10:47 Initial Comments Patient is an 87-year-old female from [facility] who presents with chief complaint of altered mental status, "not acting herself". Her DPOA/friend is with her. She has been with her for years. She states normally the patient is able to converse and alert and oriented and always a "good eater". She states she has been noticing a decline over the last week. She has been more sleepy than usual and had decreased appetite for the last couple of days. shelter reported to the DPOA that she did have some breakfast. The long term called EMS secondary to low oxygen saturation, reported in "80s". She does have as needed oxygen to use at the long term. No recent trauma or falls reported that the DPOA is aware of. Patient herself is somnolent, will not open her eyes. Is moaning a little bit. 91 and on room air. No respiratory distress or increased work of breathing is noted. DPOA states that she was on hospice for about a year 6 months ago but came off because her appetite improved and she seemed to "turnaround". She is a DNR. Patient is unable to provide any review of systems HPI for history secondary to clinical condition. Timing/Duration: 1 Week Severity: Moderate Allergies and Home Medications Allergies Coded Allergies: No Known Drug Allergies (Unverified , 08/31/15) Patient Home Medication List Home Medication List Reviewed: Yes Acetaminophen (Tylenol Arthritis) 650 Mg Tablet.er, 650 MG PO Q4H PRN for PAIN, (Reported) Entered as Reported by: MARY WELCH on 06/30/16 1655 Albuterol Sulfate (Ventolin Hfa) 8.5 Gm Hfa.aer.ad, 2 PUFF INH Q6H PRN for SHORTNESS OF BREATH, (Reported) Entered as Reported by: CRISTO ELIAS on 06/25/16 0946 Fluticasone Propionate (Fluticasone Propionate) 16 Gm [place].susp, 2 SPRAYS NS DAILY PRN for Allergies, (Reported) Entered as Reported by: CRISTO ELIAS on 06/25/16 0946 Loratadine (Loratadine) 10 Mg Tablet, 10 MG PO DAILY, (Reported) Entered as Reported by: BIJU SIMENTAL on 10/30/17 1527 Review of Systems Review of Systems Constitutional: see HPI unable to get ROS from patient due to clinical condition Past Kwslemb-Svtklq-Akszqo Hx Patient Social History Tobacco Use?: No Smoking Status: Former Smoker Substance use?: No Alcohol Use?: No Pt feels they are or have been: No Immunizations Up To Date First/Initial COVID19 Vaccinat: 02.27.21 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 Seasonal Allergies Seasonal Allergies: No Past Medical History Surgery/Hospitalization HX: HYPERLIPIDEMIA, SEASONAL ALLERGIES, ANXIETY, CHRONIC BACK PAIN, COPD Surgeries: Yes (LEFT KNEE REPLACEMENT; RIGHT TIB-FIB/ANKLE FX WITH ORIF) Hysterectomy, Joint Replacement, Orthopedic Respiratory: Yes COPD Currently Using CPAP: No Currently Using BIPAP: No Cardiac: Yes (CAROTID DISEASE) Deep Vein Thrombosis, Hypotension, Peripheral Vascular Neurological: No Reproductive Disorders: No 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 6.0oz. 47.045025ae; 17.00 BMI Method:Stated General Appearance: Chronically ill, Thin Eyes: Bilateral Eye Normal Inspection, Bilateral Eye PERRL, Bilateral Eye EOMI HEENT: PERRL/EOMI, Other (patient will not open mouth; clenches teeth) Neck: Normal Inspection Respiratory: No Accessory Muscle Use, No Respiratory Distress, Other (dim inished) Cardiovascular: Regular Rate, Rhythm (70's), Normal Peripheral Pulses Gastrointestinal: Soft, Tenderness (grimaxes with palpation of the abdomen) Extremity: No Pedal Edema Neurologic/Psychiatric: No Alert, No Oriented x3; Other (AMS - will not open her eyes to command (squeezes lids shut when I try to open them); will not follow commands) Skin: Normal Color, Warm/Dry Focused Exam Sepsis Stage: Severe Sepsis Possible Source: Pulmonary Lactate Level 06/17/22 12:10: Lactic Acid Level 2.15*H Time of Focused Exam: 12:30 Respiratory: Normal Breath Sounds, No Accessory Muscle Use, No Respiratory Distress Cardiovascular: Regular Rate, Rhythm, Normal Peripheral Pulses Capillary Refill: Less Than 3 Seconds Peripheral Pulses: 1+ Radial Pulses (R), 1+ Radial Pulses (L) Skin: warm/dry, pallor Lactic Acid Level Laboratory Tests Test 06/17/22 12:10 Lactic Acid Level 2.15 MMOL/L (0.50-2.00) *H Within 3hrs of presentation: Admin fluids, Admin 30ml/kg IBW due to BMI>30, Admin ABX, Blood cultures prior to ABX's, Focus exam, Lactate level Progress/Results/Core Measures Suspected Sepsis SIRS Temperature: Pulse: 73 Respiratory Rate: 30 Laboratory Tests 06/17/22 10:09: White Blood Count 16.4H Blood Pressure 129 /70 Mean: 89 06/17/22 12:10: Lactic Acid Level 2.15*H Laboratory Tests 06/17/22 10:09: Creatinine 0.72, INR Comment 1.0, Platelet Count 450H, Total Bilirubin 0.4 Results/Orders Lab Results Laboratory Tests Test 06/17/22 10:09 06/17/22 11:19 06/17/22 11:23 06/17/22 12:10 Range/Units White Blood Count 16.4 H 4.3-11.0 10^3/uL Red Blood Count 3.79 L 3.80-5.11 10^6/uL Hemoglobin 12.1 11.5-16.0 g/dL Hematocrit 37 35-52 % Mean Corpuscular Volume 98 80-99 fL Mean Corpuscular Hemoglobin 32 25-34 pg Mean Corpuscular Hemoglobin Concent 33 32-36 g/dL Red Cell Distribution Width 12.8 10.0-14.5 % Platelet Count 450 H 130-400 10^3/uL Mean Platelet Volume 9.7 9.0-12.2 fL Immature Granulocyte % (Auto) 1 % Neutrophils (%) (Auto) 93 H 42-75 % Lymphocytes (%) (Auto) 4 L 12-44 % Monocytes (%) (Auto) 2 0-12 % Eosinophils (%) (Auto) 0 0-10 % Basophils (%) (Auto) 0 0-10 % Neutrophils # (Auto) 15.2 H 1.8-7.8 10^3/uL Lymphocytes # (Auto) 0.7 L 1.0-4.0 10^3/uL Monocytes # (Auto) 0.4 0.0-1.0 10^3/uL Eosinophils # (Auto) 0.1 0.0-0.3 10^3/uL Basophils # (Auto) 0.0 0.0-0.1 10^3/uL Immature Granulocyte # (Auto) 0.2 H 0.0-0.1 10^3/uL Neutrophils % (Manual) 94 % Lymphocytes % (Manual) 5 % Monocytes % (Manual) 1 % Eosinophils % (Manual) 0 % Basophils % (Manual) 0 % Band Neutrophils 0 % Blood Morphology Comment NORMAL Prothrombin Time 14.1 12.2-14.7 SEC INR Comment 1.0 0.8-1.4 Activated Partial Thromboplast Time 44 H 24-35 SEC Sodium Level 139 135-145 MMOL/L Potassium Level 3.2 L 3.6-5.0 MMOL/L Chloride Level 103 98-107 MMOL/L Carbon Dioxide Level 24 21-32 MMOL/L Anion Gap 12 5-14 MMOL/L Blood Urea Nitrogen 23 H 7-18 MG/DL Creatinine 0.72 0.60-1.30 MG/DL Estimat Glomerular Filtration Rate 82 BUN/Creatinine Ratio 32 Glucose Level 241 H 70-105 MG/DL Calcium Level 8.8 8.5-10.1 MG/DL Corrected Calcium 9.9 8.5-10.1 MG/DL Total Bilirubin 0.4 0.1-1.0 MG/DL Aspartate Amino Transf (AST/SGOT) 38 H 5-34 U/L Alanine Aminotransferase (ALT/SGPT) 11 0-55 U/L Alkaline Phosphatase 170 H 40-136 U/L Total Protein 7.4 6.4-8.2 GM/DL Albumin 2.6 L 3.2-4.5 GM/DL Urine Color YELLOW Urine Clarity CLEAR Urine pH 6.0 5-9 Urine Specific [place] 1.020 1.016-1.022 Urine Protein 1+ H NEGATIVE Urine Glucose (UA) NEGATIVE NEGATIVE Urine Ketones NEGATIVE NEGATIVE Urine Nitrite NEGATIVE NEGATIVE Urine Bilirubin NEGATIVE NEGATIVE Urine Urobilinogen 1.0 < = 1.0 MG/DL Urine Leukocyte Esterase 2+ H NEGATIVE Urine RBC (Auto) 3+ H NEGATIVE Urine RBC 25-50 H /HPF Urine WBC 10-25 H /HPF Urine Squamous Epithelial Cells 2-5 /HPF Urine Crystals NONE /LPF Urine Bacteria NEGATIVE /HPF Urine Casts NONE /LPF Urine Mucus NEGATIVE /LPF Urine Culture Indicated YES Influenza Type A (RT-PCR) Not Detected Not Detecte Influenza Type B (RT-PCR) Not Detected Not Detecte SARS-CoV-2 RNA (RT-PCR) Not Detected Not Detecte Glucometer 181 H 70-110 MG/DL Lactic Acid Level 2.15 *H 0.50-2.00 MMOL/L My Orders Orders - KASI FAJARDO MD Ed Iv/Invasive Line Start (06/17/22 10:58) Cbc With Automated Diff (06/17/22 10:58) Comprehensive Metabolic Panel (06/17/22 10:58) Ua Culture If Indicated (06/17/22 10:58) Chest 1 View, Ap/Pa Only (06/17/22 10:58) Covid 19 Inhouse Test (06/17/22 10:58) Influenza A And B By Pcr (06/17/22 10:58) Isolation Central Supply Req (06/17/22 10:58) Accucheck Stat ONCE (06/17/22 10:58) Acetaminophen Tablet (Tylenol Tablet) (06/17/22 11:15) Diclofenac 1% Gel (Voltaren 1% Gel) (06/17/22 13:00) Manual Differential (06/17/22 10:09) Blood Culture (06/17/22 11:36) Sputum Culture (06/17/22 11:36) Protime With Inr (06/17/22 11:36) Partial Thromboplastin Time (06/17/22 11:36) Ed Iv/Invasive Line Start (06/17/22 11:36) Ed Iv/Invasive Line Start (06/17/22 11:36) Vital Signs Adult Sepsis Patie Q15M (06/17/22 11:36) O2 (06/17/22 11:36) Remove Rings In Anticipation O (06/17/22 11:36) Lactic Acid Analyzer (06/17/22 11:36) Piperacillin Sodium/Tazobactam (Zosyn Vi (06/17/22 11:45) Urine Culture (06/17/22 11:19) Ns Iv 500 Ml (Sodium Chloride 0.9%) (06/17/22 12:22) Pelvis 1 To 2 Views (06/17/22 13:09) Ns Iv 500 Ml (Sodium Chloride 0.9%) (06/17/22 13:14) Ed Admission (Communication) (06/17/22 13:16) Medications Given in ED Current Medications Medications Dose Ordered Sig/[place] Route Start Time Stop Time Status Last Admin Dose Admin Acetaminophen 1,000 mg ONCE ONCE PO 06/17/22 11:15 06/17/22 11:16 DC 06/17/22 11:38 1,000 MG Piperacillin Sod/ Tazobactam Sod 4.5 gm/Sodium Chloride 100 ml @ 200 mls/hr ONCE ONCE IV 06/17/22 11:45 06/17/22 12:14 DC 06/17/22 11:59 200 MLS/HR Vital Signs/I&O 06/17/22 10:05 Temp 36.1 Pulse 73 Resp 30 B/P (MAP) 129/70 (89) Pulse Ox 93 O2 Delivery Room Air Capillary Refill : Less Than 3 Seconds Blood Pressure Mean: 89 Progress Note : Time: 11:34 Progress Note After viewing CXR, Sepsis labs (cultures and lactic acid) obtained. Diagnostic Imaging Diagonstic Imaging: Xray Plain Films/CT/US/NM/MRI: chest Comments interpreted by nm - large RLL consolidative infiltrate/effusion [facility] [place] NAME: STANLEY HUFF [facility] REC#: [id number] PT STATUS: REG ER : 1935 PHYSICIAN: KASI FAJARDO MD ADMIT DATE: 06/17/22/ER Signed Date of Exam:06/17/22 CHEST 1 VIEW, AP/PA ONLY EXAMINATION: Chest 1 view HISTORY: Altered mental status. COMPARISON: 05/10/2021. FINDINGS: Small to moderate right-sided pleural effusion is seen with opacities throughout the right lung. The left lung is clear. Stable cardiac silhouette. There is calcified aortic atherosclerotic plaque. No pneumothorax. IMPRESSION: 1. Small to moderate right-sided pleural effusion with opacities in the right lung suggestive of infection. Asymmetric edema can also have this appearance. Dictated by: Dictated on workstation # [id number] Dict: 06/17/22 1145 Trans: 06/17/22 1209 [facility] [id number] Interpreted by: LATRICE RED DO Electronically signed by: LATRICE RED DO 06/17/22 1209 Diagonstic Imaging: Xray Plain Films/CT/US/NM/MRI: pelvis Comments [facility] [place] NAME: STANLEY HUFF Ayana [facility] REC#: [id number] PT STATUS: REG ER : 1935 PHYSICIAN: KASI FAJARDO MD ADMIT DATE: 06/17/22/ER Signed Date of Exam:06/17/22 PELVIS 1 TO 2 VIEWS CLINICAL HISTORY: Pelvic pain. COMPARISON: 05/10/2021. TECHNIQUE: Single frontal view of the pelvis is obtained. FINDINGS: There is no acute fracture or dislocation of the pelvis and bilateral hips. Alignment is anatomic. The imaged joint spaces are preserved. Phleboliths are scattered in the pelvis. IMPRESSION: 1. No acute fracture or dislocation in the pelvis and bilateral hips. Dictated by: Dictated on workstation # [id number] Dict: 06/17/22 1342 Trans: 06/17/22 1350 [id number] Interpreted by: LATRICE RED DO Electronically signed by: LATRICE RED DO 06/17/22 1350 Departure Communication (Admissions) Time/Spoke to Admitting Phy: 13:[address] Azul; "severe sepsis"; IP to medical floor Impression Primary Impression: Pneumonia Qualified Codes: J18.9 - Pneumonia, unspecified organism Additional Impression: Severe sepsis Disposition: 09 ADMITTED INPATIENT Condition: Stable Admissions Decision to Admit Reason: Admit from ER (General) Decision to Admit/Date: Jun 17, 2022 Time/Decision to Admit Time: 13:16 Departure-Patient Inst. Referrals: JENNI DURHAM MD (PCP) Primary Care Physician JUSTO RODRIGUZE APRN (Family) Primary Care Physician KASI FAJARDO MD Jun 17, 2022 10:52
[2022-06-17 11:06] LABS: BASOPHILS % (AUTO) 0 % (0-10); EOSINOPHILS # (AUTO) 0.1 10^3/uL (0.0-0.3); EOSINOPHILS % (AUTO) 0 % (0-10); HEMATOCRIT 37 % (35-52); HEMOGLOBIN 12.1 g/dL (11.5-16.0); LYMPHOCYTES # (AUTO) 0.7 10^3/uL (1.0-4.0); LYMPHOCYTES % (AUTO) 4 % (12-44); MEAN CORPUSCULAR HEMOGLOBIN 32 pg (25-34); MEAN CORPUSCULAR HGB CONC 33 g/dL (32-36); MEAN CORPUSCULAR VOLUME 98 fL (80-99); MEAN PLATELET VOLUME 9.7 fL (9.0-12.2); MONOCYTES # (AUTO) 0.4 10^3/uL (0.0-1.0); MONOCYTES % (AUTO) 2 % (0-12); NEUTROPHILS # (AUTO) 15.2 10^3/uL (1.8-7.8); NEUTROPHILS % (AUTO) 93 % (42-75); PLATELET COUNT 450 10^3/uL (130-400); WHITE BLOOD COUNT 16.4 10^3/uL (4.3-11.0)
[2022-06-17] MEDS ORDERED: ACETAMINOPHEN 500 MG TAB (TYLENOL) PO ONE (11:15)
[2022-06-17 11:19] LABS: ALBUMIN 2.6 GM/DL (3.2-4.5); POTASSIUM 3.2 MMOL/L (3.6-5.0)
[2022-06-17 11:20] LABS: CALCIUM 8.8 MG/DL (8.5-10.1)
[2022-06-17 11:22] LABS: TOTAL PROTEIN 7.4 GM/DL (6.4-8.2)
[2022-06-17 11:23] LABS: BILIRUBIN,TOTAL 0.4 MG/DL (0.1-1.0)
[2022-06-17 11:25] LABS: CREATININE SERUM 0.72 MG/DL (0.60-1.30)
[2022-06-17 11:26] LABS: BILIRUBIN,URINE NEGATIVE (NEGATIVE); CLARITY,URINE CLEAR; COLOR,URINE YELLOW; GLUCOSE, URINE (UA) NEGATIVE (NEGATIVE); KETONES,URINE NEGATIVE (NEGATIVE); LEUKOCYTE ESTERASE ,URINE 2+ (NEGATIVE); NITRITE,URINE NEGATIVE (NEGATIVE); PROTEIN,URINE 1+ (NEGATIVE)
[2022-06-17 11:38] LABS: BACTERIA,URINE NEGATIVE /HPF; RBC,URINE 25-50 /HPF
[2022-06-17] MEDS ORDERED: PIPERACILLIN SODIUM/TAZOBACTAM 4.5 GM in NS (IVPB) 100 ML IV ONE (11:45)
[2022-06-17 11:48] LABS: BAND NEUTROPHILS 0 %; BASOPHILS % (MANUAL) 0 %; EOSINOPHILS % (MANUAL) 0 %; LYMPHOCYTES % (MANUAL) 5 %; MONOCYTES % (MANUAL) 1 %; NEUTROPHILS % (MANUAL) 94 %; RBC MORPH NORMAL
--- NOTE | 2022-06-17 11:48 | Diagnostic Imaging Report ---
EXAMINATION: Chest 1 view HISTORY: Altered mental status. COMPARISON: 05/10/2021. FINDINGS: Small to moderate right-sided pleural effusion is seen with opacities throughout the right lung. The left lung is clear. Stable cardiac silhouette. There is calcified aortic atherosclerotic plaque. No pneumothorax. IMPRESSION: 1. Small to moderate right-sided pleural effusion with opacities in the right lung suggestive of infection. Asymmetric edema can also have this appearance. Dictated by: Dictated on workstation # [id number]
[2022-06-17] MEDS: DICLOFENAC 1% GEL 100 GM (VOLTAREN) TUBE TOP SCH ×3 (11:59→20:50)
[2022-06-17] MEDS ORDERED: NS IV 500 ML 500 ML IV STA ×2 (12:22→13:14)
[2022-06-17 13:22] LABS: PROTHROMBIN TIME PATIENT 14.1 SEC (12.2-14.7)
--- NOTE | 2022-06-17 13:48 | Diagnostic Imaging Report ---
CLINICAL HISTORY: Pelvic pain. COMPARISON: 05/10/2021. TECHNIQUE: Single frontal view of the pelvis is obtained. FINDINGS: There is no acute fracture or dislocation of the pelvis and bilateral hips. Alignment is anatomic. The imaged joint spaces are preserved. Phleboliths are scattered in the pelvis. IMPRESSION: 1. No acute fracture or dislocation in the pelvis and bilateral hips. Dictated by: Dictated on workstation # [id number]
[2022-06-17 15:30] VITALS: BP 160/78
[2022-06-17] MEDS ORDERED: ONDANSETRON 4 MG/2 ML (SDV) Z0FRAN IV PRN (16:00)
[2022-06-17] MEDS ORDERED: LACTULOSE SYRUP 10GM/15ML (ENULOSE) 30ML UDC PO PRN (16:00)
[2022-06-17] MEDS ORDERED: MILK OF MAGNESIA 400 MG/5 ML 30 ML UDC PO PRN (16:00)
[2022-06-17] MEDS ORDERED: CALCIUM CARBONATE 500 MG (TUMS) TAB.CHEW PO PRN (16:00)
[2022-06-17] MEDS ORDERED: polyethylene glycoL POWDER 17 GM (MIRALAX) PACK PO PRN (16:00)
[2022-06-17] MEDS ORDERED: BISACODYL 10 MG SUPP (DULCOLAX) PR PRN (16:00)
[2022-06-17] MEDS ORDERED: ANTACID SUSP 30 ML UDC (MYLANTA) PO PRN (16:00)
[2022-06-17] MEDS ORDERED: ONDANSETRON 4 MG (ZOFRAN) ORAL DISSOLVE TAB PO PRN (16:00)
[2022-06-17] MEDS ORDERED: MELATONIN 3 MG TABLET PO PRN (16:00)
[2022-06-17 16:11] VITALS: BP 119/82
[2022-06-17] MEDS ORDERED: ACET-2267 PO (16:26)
[2022-06-17] MEDS ORDERED: ACET-93 PO ×2 (16:26)
[2022-06-17] MEDS ORDERED: DICL100G13 TP (16:26)
[2022-06-17] MEDS ORDERED: ATOR40TA70 PO (16:26)
[2022-06-17] MEDS ORDERED: CETI10TA17 PO (16:26)
[2022-06-17] MEDS ORDERED: CARB15DR87 OT (16:26)
[2022-06-17] MEDS ORDERED: CLOP75TA28 PO (16:26)
[2022-06-17] MEDS ORDERED: QUET25TA35 PO (16:26)
[2022-06-17] MEDS ORDERED: IPRA3AMP31 NEB (16:26)
[2022-06-17] MEDS ORDERED: RT-ALBUTEROL/IPRATROPIUM 3 ML (DUONEB) VIAL INH PRN (16:30)
[2022-06-17] MEDS: ENOXAPARIN INJECTION 30 MG/0.3 ML SYR SC SCH (17:32)
[2022-06-17] MEDS: LACTATED RINGERS 1,000 ML IV SCH (17:32)
[2022-06-17] MEDS: PIPERACILLIN SODIUM/TAZOBACTAM 4.5 GM in NS (IVPB) 100 ML IV SCH (17:33)
[2022-06-17 20:25] VITALS: BP 149/75
[2022-06-17] MEDS: SENNOSIDES 8.6 MG (SENOKOT) TAB PO SCH (20:50)
[2022-06-17] MEDS: DOCUSATE SODIUM 100 MG (COLACE) CAP PO SCH (20:50)
[2022-06-17] MEDS: RT-ALBUTEROL/IPRATROPIUM 3 ML (DUONEB) VIAL INH SCH (21:29)
[2022-06-18] VITALS (7 sets, daily range): BP systolic 94–160; BP diastolic 56–82
[2022-06-18] MEDS: PIPERACILLIN SODIUM/TAZOBACTAM 4.5 GM in NS (IVPB) 100 ML IV SCH ×3 (02:10→17:16)
[2022-06-18] MEDS: RT-ALBUTEROL/IPRATROPIUM 3 ML (DUONEB) VIAL INH SCH ×4 (02:44→21:21)
[2022-06-18] MEDS: LACTATED RINGERS 1,000 ML IV SCH ×2 (05:12→15:34)
[2022-06-18 05:56] LABS: BASOPHILS % (AUTO) 0 % (0-10); EOSINOPHILS % (AUTO) 0 % (0-10); HEMATOCRIT 36 % (35-52); HEMOGLOBIN 11.6 g/dL (11.5-16.0); LYMPHOCYTES # (AUTO) 0.6 10^3/uL (1.0-4.0); LYMPHOCYTES % (AUTO) 2 % (12-44); MEAN CORPUSCULAR HEMOGLOBIN 32 pg (25-34); MEAN CORPUSCULAR HGB CONC 32 g/dL (32-36); MEAN CORPUSCULAR VOLUME 98 fL (80-99); MEAN PLATELET VOLUME 9.7 fL (9.0-12.2); MONOCYTES # (AUTO) 0.4 10^3/uL (0.0-1.0); MONOCYTES % (AUTO) 2 % (0-12); NEUTROPHILS # (AUTO) 22.8 10^3/uL (1.8-7.8); NEUTROPHILS % (AUTO) 95 % (42-75); PLATELET COUNT 452 10^3/uL (130-400); WHITE BLOOD COUNT 24.1 10^3/uL (4.3-11.0)
[2022-06-18] MEDS: DICLOFENAC 1% GEL 100 GM (VOLTAREN) TUBE TOP SCH ×4 (09:08→20:03)
[2022-06-18] MEDS: SENNOSIDES 8.6 MG (SENOKOT) TAB PO SCH ×2 (09:08→20:00)
[2022-06-18] MEDS: DOCUSATE SODIUM 100 MG (COLACE) CAP PO SCH ×2 (09:08→20:00)
[2022-06-18] MEDS: ACETAMINOPHEN 325 MG TABLET PO PRN (09:08)
--- NOTE | 2022-06-18 09:41 | History & Physical-Hospitalist ---
MATTIE BENTLEY A MED STUDENT 06/18/22 0940: History of Present Illness HPI/Chief Complaint Elyse is an 87 yo female detention resident who was admitted from the ED on 06/17 for pneumonia and severe sepsis. Pt is alert, but not oriented and has dementia. DPABDIEL, a family friend, is present and provides the history. She states she was notified yesterday by the [place] that the pt was being taken by EMS to [facility] ED for AMS, lethargy and decreased appetite. She reports she has noticed the pt declining over the last three weeks. She is normally talkative, but has been very sleepy and doesn't open her eyes much. Pt was previously on hospice 6 months ago, but gained weight so it was stopped. DPOA reports she has a fair appetite and decent oral intake currently. She normally has a really good appetite. Pt is unable to communicate whether she has any concerns, but DPOA reports she has not complained of anything. Source: other (DPOA-family friend) Exam Limitations: clinical condition Date Seen 06/18/22 Time Seen by a Provider: 08:00 Attending Physician Buzz Butler MD PCP Admitting Physician: Kyung Azul MD Attending Physician: Kyung Azul MD Referring Physician Date of Admission Jun 17, 2022 at 13:17 Home Medications & Allergies Home Medications Reviewed patient Home Medication Reconciliation performed by pharmacy medication reconciliations seed laboratory technician and/or nursing. Patients Allergies have been reviewed. Allergies Allergies Coded Allergies No Known Drug Allergies (Unverified08/31/15) Past Zpgnvhv-Lnekwp-Lbpyqb Hx Patient Social History Tobacco Use?: No Smoking Status: Former Smoker Substance use?: No Alcohol Use?: No Pt feels they are or have been: No Immunizations Up To Date Date of Influenza Vaccine: Apr 25, 2016 First/Initial COVID19 Vaccinat: 02.27.21 Tetanus Booster (TDap): Less Than 5 Years Hepatitis A: No Date of Pneumonia Vaccine: Apr 25, 2015 Seasonal Allergies Seasonal Allergies: No Current Status status: No status: No Advance Directives: No Communicates: Verbally Primary Language: [place] Preferred Spoken Language: [place] Implanted or Applied Medical D: Orthopedic hardware Past Medical History Surgeries: Hysterectomy, Joint Replacement, Orthopedic COPD Currently Using CPAP: No Currently Using BIPAP: No Deep Vein Thrombosis, Hypotension, 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 6.0oz. 47.962883mf; 17.63 BMI Method:Stated General Appearance: Chronically ill, Cachetic HEENT: PERRL/EOMI, Other (left eye drainage) Neck: Full Range of Motion, Normal Inspection Respiratory: Chest Non Tender, No Accessory Muscle Use, No Respiratory Distress, Crackles, Decreased Breath Sounds Cardiovascular: Regular Rate, Rhythm, No Murmur Gastrointestinal: Normal Bowel Sounds, Non Tender Back: Normal Inspection, No Vertebral Tenderness Extremity: Normal Capillary Refill, Normal Inspection, Non Tender, No Pedal Edema Neurologic/Psychiatric: Alert, Disoriented Skin: Warm/Dry, Pallor Lymphatic: No Adenopathy Results Results/Procedures Labs Laboratory Tests 06/17/22 10:09 06/18/22 05:30 Patient resulted labs reviewed. Assessment/Plan Admission Diagnosis Severe sepsis d/t pneumonia Admission Status: Inpatient Order (span 2 midnights) Reason for Inpatient Admission: Severe sepsis d/t pneumonia Assessment and Plan Severe sepsis d/t PNA UTI Hypokalemia COPD HLD Osteoporosis Rheumatoid Arthritis Anxiety Severe sepsis d/t PNA -Zosyn -LR at 75mls/hr -Lactic Acidosis resolved -WBC increased to 24.1 -Thrombocytosis d/t infection -CXR indicated small to mod R. pleural effusion with opacities in R. lung indicating infection. UTI -Zosyn -LR at 75mls/hr -Encourage good oral intake -Encourage good hygiene -Urine culture pending Hypokalemia -KCl protocol Dementia -Fall risk, keep bed rails up at all times, keep slip resistant socks on and bed alarm Pelvic Pain -Pelvic Xray wnl COPD -MAT protocol HLD -Not on any medications for this at home according to med rec Osteoporosis -Fall risk, keep bed rails up at all times, keep slip resistant socks on and bed alarm -Likely the cause of elevated ALP Rheumatoid Arthritis Anxiety Disposition: Pt likely to stay 24-48 for IV abx treatment for severe sepsis d/t pna and UTI. Will allow good penetration of lung tissue. Then we will transition to oral abx on d/c. Will consult Packing And Wrapping Supervisor to provide DPOA with hospice information. Diet: Pureed, encourage good fluid intake DVT ppx: Lovenox Fall risk KYUNG AZUL MD 06/18/22 1730: History of Present Illness Source: family Exam Limitations: clinical condition Time Seen by a Provider: 11:55 Past Shmtnbx-Iosfmc-Fxmjof Hx Family Medical History No Pertinent Family Hx Review of Systems Constitutional: see HPI Results Results/Procedures Imaging: Reviewed Imaging Report Assessment/Plan Admission Diagnosis Admission Status: Inpatient Order (span 2 midnights) Reason for Inpatient Admission: IV antibiotics Assessment and Plan Admitted with severe sepsis due to pneumonia. Started on IV antibiotics. Poor prognosis due to underlying Parkinson's dementia and severe protein calorie mal nutrition. Discussed goals of care with DPOA. She would like to pursue hospice options. Consult SW tomorrow for information. Diagnosis/Problems Diagnosis/Problems (1) Severe sepsis Status: Acute (2) Pneumonia Status: Acute Qualifiers: Pneumonia type: due to unspecified organism Laterality: right Lung location: lower lobe of lung Qualified Codes: J18.9 - Pneumonia, unspecified organism (3) Lactic acidosis Status: Acute (4) Parkinson's disease dementia Status: Chronic Qualifiers: Dementia severity: severe Dementia behavioral or psychological symptom: unspecified whether behavioral, psychotic, or mood disturbance or anxiety Qualified Codes: G20 - Parkinson's disease; F02.C0 - Dementia in other diseases classified elsewhere, severe, without behavioral disturbance, psychotic disturbance, mood disturbance, and anxiety (5) Severe protein-calorie malnutrition Status: Acute Supervisory-Addendum Brief Verification & Attestation Participated in pt care: history, MDM, physical Personally performed: exam, history, MDM, supervision of care Care discussed with: Medical Student Procedures: n/a Results interpretation: Verified all documentation A medical student performed and documented this service in my presence. I reviewed and verified all information documented by the medical student and made modifications to such information, when appropriate. I personally performed the physical exam and medical decision making. MATTIE BENTLEY MED STUDENT Jun 18, 2022 09:40 KYUNG AZUL MD Jun 18, 2022 17:30
[2022-06-18] MEDS ORDERED: NS IV 500 ML 500 ML IV PRN (09:45)
[2022-06-18 09:54] LABS: POTASSIUM 3.1 MMOL/L (3.6-5.0)
[2022-06-18 09:55] LABS: CALCIUM 8.8 MG/DL (8.5-10.1)
[2022-06-18 09:59] LABS: CREATININE SERUM 0.63 MG/DL (0.60-1.30)
[2022-06-18] MEDS ORDERED: KCL 20 MEQ TAB (K-DUR) PO NR ×2 (10:00→13:00)
[2022-06-18 10:01] LABS: MAGNESIUM 1.9 MG/DL (1.6-2.4)
[2022-06-18] MEDS: ENOXAPARIN INJECTION 30 MG/0.3 ML SYR SC SCH (15:33)
[2022-06-19] MEDS: PIPERACILLIN SODIUM/TAZOBACTAM 4.5 GM in NS (IVPB) 100 ML IV SCH ×2 (02:04→10:23)
[2022-06-19] MEDS: RT-ALBUTEROL/IPRATROPIUM 3 ML (DUONEB) VIAL INH SCH ×2 (02:13→07:52)
[2022-06-19 03:33] VITALS: BP 140/66
[2022-06-19] MEDS: LACTATED RINGERS 1,000 ML IV SCH (03:53)
[2022-06-19] MEDS ORDERED: POTASSIUM CL 10MEQ/50ML IVPB 50 ML IV SCH (06:00)
[2022-06-19] MEDS ORDERED: MAGNESIUM 1 GM/100 ML IVPB 100 ML IV SCH (06:00)
[2022-06-19] MEDS ORDERED: KCL 20 MEQ TAB (K-DUR) PO SCH (06:00)
[2022-06-19 06:14] LABS: BASOPHILS % (AUTO) 0 % (0-10); EOSINOPHILS # (AUTO) 0.1 10^3/uL (0.0-0.3); EOSINOPHILS % (AUTO) 1 % (0-10); HEMATOCRIT 38 % (35-52); LYMPHOCYTES # (AUTO) 0.5 10^3/uL (1.0-4.0); LYMPHOCYTES % (AUTO) 4 % (12-44); MEAN CORPUSCULAR HEMOGLOBIN 31 pg (25-34); MEAN CORPUSCULAR HGB CONC 32 g/dL (32-36); MEAN CORPUSCULAR VOLUME 100 fL (80-99); MEAN PLATELET VOLUME 9.8 fL (9.0-12.2); MONOCYTES # (AUTO) 0.4 10^3/uL (0.0-1.0); MONOCYTES % (AUTO) 3 % (0-12); NEUTROPHILS # (AUTO) 12.7 10^3/uL (1.8-7.8); NEUTROPHILS % (AUTO) 91 % (42-75); PLATELET COUNT 415 10^3/uL (130-400); WHITE BLOOD COUNT 13.9 10^3/uL (4.3-11.0)
[2022-06-19 06:29] LABS: CALCIUM 8.7 MG/DL (8.5-10.1); CREATININE SERUM 0.57 MG/DL (0.60-1.30); MAGNESIUM 1.9 MG/DL (1.6-2.4); POTASSIUM 3.6 MMOL/L (3.6-5.0)
[2022-06-19 07:21] VITALS: BP 158/65
[2022-06-19] MEDS ORDERED: KCL 20 MEQ TAB (K-DUR) PO ONE (07:30)
[2022-06-19] MEDS ORDERED: D5W 1000 ML IV SOLUTION 1,000 ML IV SCH (07:45)
[2022-06-19] MEDS: SENNOSIDES 8.6 MG (SENOKOT) TAB PO SCH (09:00)
[2022-06-19] MEDS: DOCUSATE SODIUM 100 MG (COLACE) CAP PO SCH (09:00)
[2022-06-19] MEDS ORDERED: KCL 20 MEQ TAB (K-DUR) PO NR (10:00)
[2022-06-19] MEDS: ACETAMINOPHEN 325 MG TABLET PO PRN ×2 (10:22→15:14)
[2022-06-19] MEDS: DICLOFENAC 1% GEL 100 GM (VOLTAREN) TUBE TOP SCH ×2 (10:24→14:22)
[2022-06-19 11:32] VITALS: BP 150/79
--- NOTE | 2022-06-19 12:50 | Discharge Summary ---
MATTIE BENTLEY A MED STUDENT 06/19/22 1250: Diagnosis/Chief Complaint Date of Admission Jun 17, 2022 at 13:17 Date of Discharge Discharge Date: Jun 19, 2022 Admission Diagnosis Primary Care Emy Keith Sandrita Discharge Diagnosis Sepsis d/t pneumonia (1) Severe sepsis Status: Resolved (2) Pneumonia Status: Acute Assessment & Plan: Will d/c on oral abx, take this medication as prescribed (3) Lactic acidosis Status: Resolved (4) Parkinson's disease dementia Status: Chronic Assessment & Plan: Resume home meds (5) Severe protein-calorie malnutrition Status: Acute (6) Urinary tract infection Status: Acute Assessment & Plan: Will d/c on oral abx Discharge Summary Discharge Physical Exam Allergies: Coded Allergies: No Known Drug Allergies (Unverified , 08/31/15) Vitals & I&Os Vital Signs Date Time Temp Pulse Resp B/P (MAP) Pulse Ox O2 Delivery O2 Flow Rate FiO2 06/19/22 11:32 36.6 66 18 150/79 (102) 97 Nasal Cannula 2.00 General Appearance: Chronically ill, Cachetic HEENT: PERRL/EOMI, Moist Mucous Membranes Respiratory: Chest Non Tender, No Accessory Muscle Use, No Respiratory Distress, Crackles, Decreased Breath Sounds Cardiovascular: Regular Rate, Rhythm, No Murmur Gastrointestinal: Normal Bowel Sounds, Non Tender, Soft Extremity: Normal Capillary Refill, Non Tender, No Pedal Edema Skin: Normal Color, Warm/Dry Neurologic/Psychiatric: Alert, Disoriented Hospital Course Elyse is an 87 yo female halfway resident who was admitted from the ED on 06/17 for pneumonia and severe sepsis. Pt waws alert, but not oriented and has dementia. HECTOR, a family friend, was present and provides the history. She states she was notified by the CT that the pt was being taken by EMS to [facility] ED for AMS, lethargy and decreased appetite. She reports she has noticed the pt declining over the last three weeks. Pt was previously on hospice 6 months ago, but gained weight so it was stopped and she [facility]. HECTOR had concerns regarding need for hospice. Hospice options and information was given and she decided on [facility]. Pt is medically stable so [facility]. Labs (last 24 hrs) Laboratory Tests 06/19/22 05:35: White Blood Count 13.9H, Red Blood Count 3.82, Hemoglobin 12.0, Hematocrit 38, Mean Corpuscular Volume 100H, Mean Corpuscular Hemoglobin 31, Mean Corpuscular Hemoglobin Concent 32, Red Cell Distribution Width 13.0, Platelet Count 415H, Mean Platelet Volume 9.8, Immature Granulocyte % (Auto) 2, Neutrophils (%) (Auto) 91H, Lymphocytes (%) (Auto) 4L, Monocytes (%) (Auto) 3, Eosinophils (%) (Auto) 1, Basophils (%) (Auto) 0, Neutrophils # (Auto) 12.7H, Lymphocytes # (Auto) 0.5L, Monocytes # (Auto) 0.4, Eosinophils # (Auto) 0.1, Basophils # (Auto) 0.0, Immature Granulocyte # (Auto) 0.3H, Sodium Level 148H, Potassium Level 3.6, Chloride Level 111H, Carbon Dioxide Level 23, Anion Gap 14, Blood Urea Nitrogen 12, Creatinine 0.57L, Estimat Glomerular Filtration Rate 89, BUN/Creatinine Ratio 21, Glucose Level 97, Calcium Level 8.7, Magnesium Level 1.9 Microbiology 06/17/22 Blood Culture - Preliminary, Resulted No growth 06/17/22 Urine Culture - Preliminary, Resulted Strep agalactiae Group B See Comments Staphylococcus aureus Culture In Progress Patient resulted labs reviewed. Pending Labs Laboratory Tests 06/19/22 05:35: White Blood Count 13.9, Red Blood Count 3.82, Hemoglobin 12.0, Hematocrit 38, Mean Corpuscular Volume 100, Mean Corpuscular Hemoglobin 31, Mean Corpuscular Hemoglobin Concent 32, Red Cell Distribution Width 13.0, Platelet Count 415, Mean Platelet Volume 9.8, Immature Granulocyte % (Auto) 2, Neutrophils (%) (Auto) 91, Lymphocytes (%) (Auto) 4, Monocytes (%) (Auto) 3, Eosinophils (%) (Auto) 1, Basophils (%) (Auto) 0, Neutrophils # (Auto) 12.7, Lymphocytes # (Auto) 0.5, Monocytes # (Auto) 0.4, Eosinophils # (Auto) 0.1, Basophils # (Auto) 0.0, Immature Granulocyte # (Auto) 0.3, Sodium Level 148, Potassium Level 3.6, Chloride Level 111, Carbon Dioxide Level 23, Anion Gap 14, Blood Urea Nitrogen 12, Creatinine 0.57, Estimat Glomerular Filtration Rate 89, BUN/Creatinine Ratio 21, Glucose Level 97, Calcium Level 8.7, Magnesium Level 1.9 Imaging: Reviewed Imaging Report Discharge Home Medications: Active Scripts Active Reported Debrox (Carbamide Peroxide) 6.5 % Drops 1 Drop OT UD PRN Tylenol Extra Strength (Acetaminophen) 500 Mg Tablet 500 Mg PO Q4H PRN Diclofenac Sodium 1 % Gel..gram. 1 Applic TP BID PRN APPLY TO BACK IF TYLENOL DOESNT WORK Iprat-Albut 0.5-3(2.5) mg/3 ml (Ipratropium/Albuterol Sulfate) 0.5 Mg-3 Mg (2.5 Mg Base)/3 Ml Ampul.neb 2.5 Mg NEB Q6H PRN Quetiapine Fumarate 25 Mg Tablet 25 Mg PO DAILY Clopidogrel (Clopidogrel Bisulfate) 75 Mg Tablet 75 Mg PO DAILY Cetirizine HCl 10 Mg Tablet 10 Mg PO DAILY Atorvastatin Calcium 40 Mg Tablet 40 Mg PO HS Acetaminophen 500 Mg Tablet 500 Mg PO 1300 Acetaminophen 500 Mg Tablet 1,000 Mg PO 0800,1400,2000 Instructions to patient/family Please see electronic discharge instructions given to patient. Clinical Quality Measures End of Life/Advance Care Plan: Advance Care discuss with: patient, family member (s) End of Life Care: Hospice Care (Home) Plan: developed treatment plan Pneumonia: Pseudomonal Risk: Malnutrition HCAP with risk for mulit-drug: Custodial Resident KYUNG REYES MD 06/19/22 1716: Diagnosis/Chief Complaint Discharge Time: 15:00 Admission Diagnosis Severe sepsis due to pneumonia Discharge Diagnosis (1) Severe sepsis Status: Resolved (2) Pneumonia Status: Acute Assessment & Plan: Will d/c on oral abx, take this medication as prescribed (3) Lactic acidosis Status: Resolved (4) Parkinson's disease dementia Status: Chronic Assessment & Plan: Resume home meds (5) Severe protein-calorie malnutrition Status: Acute (6) Urinary tract infection Status: Acute Assessment & Plan: Will d/c on oral abx Discharge Summary Discharge Physical Exam Allergies: Coded Allergies: No Known Drug Allergies (Unverified , 08/31/15) Hospital Course Was the Problem List Reviewed?: Yes Imaging: Reviewed Imaging Report Discussion & Recommendations Discharge Planning: >30 minutes discharge planning Supervisory-Addendum Brief Verification & Attestation Participated in pt care: history, MDM, physical Personally performed: exam, history, MDM, supervision of care Care discussed with: Medical Student Procedures: n/a A medical student performed and documented this service in my presence. I reviewed and verified all information documented by the medical student and made modifications to such information, when appropriate. I personally performed the physical exam and medical decision making. Problem Qualifiers (1) Pneumonia: Pneumonia type: aspiration pneumonia Aspiration pneumonia type: unspecified Laterality: right Lung location: lower lobe of lung Qualified Codes: J69.0 - Pneumonitis due to inhalation of food and vomit (2) Parkinson's disease dementia: Dementia severity: severe Dementia behavioral or psychological symptom: unspecified whether behavioral, psychotic, or mood disturbance or anxiety Qualified Codes: G20 - Parkinson's disease; F02.C0 - Dementia in other diseases classified elsewhere, severe, without behavioral disturbance, psychotic disturbance, mood disturbance, and anxiety MATTIE BENTLEY MED STUDENT Jun 19, 2022 12:50 KYUNG REYES MD Jun 19, 2022 17:16
[2022-06-19] MEDS ORDERED: AMOX600S41 PO ×2 (13:12→17:50)
== END 2022-06-19 15:30 | disposition hospice, inpatient (51) | DRG 871 ==
LOC: EDUNIT# 10:05 → ER 10:07 → 4TH 13:17
PROVIDERS: ADMIT Internal Medicine; ATTEND Internal Medicine
DX: A41.9 Sepsis, unspecified organism (principal); E43 Unspecified severe protein-calorie malnutrition; J18.9 Pneumonia, unspecified organism; N39.0 Urinary tract infection, site not specified; J44.0 Chronic obstructive pulmonary disease with (acute) lower respiratory infection; E87.20 Acidosis, unspecified; Z68.1 Body mass index [BMI] 19.9 or less, adult; R65.20 Severe sepsis without septic shock; F03.90 Unspecified dementia, unspecified severity, without behavioral disturbance, psychotic disturbance, mood disturbance, and anxiety; Z51.5 Encounter for palliative care; Z66 Do not resuscitate; Z87.891 Personal history of nicotine dependence; Z86.718 Personal history of other venous thrombosis and embolism; I73.9 Peripheral vascular disease, unspecified; M06.9 Rheumatoid arthritis, unspecified; G89.29 Other chronic pain; M54.9 Dorsalgia, unspecified; E78.5 Hyperlipidemia, unspecified; M81.0 Age-related osteoporosis without current pathological fracture; F41.9 Anxiety disorder, unspecified; E87.6 Hypokalemia; R10.2 Pelvic and perineal pain; G20 Parkinson's disease; F02.80 Dementia in other diseases classified elsewhere, unspecified severity, without behavioral disturbance, psychotic disturbance, mood disturbance, and anxiety; Z96.652 Presence of left artificial knee joint; Z20.822 Contact with and (suspected) exposure to COVID-19
CPT/HCPCS: 36415; 71045; 72170; 80048; 80053; 81000; 82947; 83605; 83735; 85007; 85025; 85027; 85610; 85730; 87040; 87077; 87088; 87186; 87636; 94640; 94760